=== PATIENT | male | born 1955 | race Caucasian/White ===

== ENCOUNTER 2021-03-23 07:44 | Day surgery (SDC) | payer BC ==
[2021-03-20 15:51] LABS: MICROSCOPIC NOT IND
[2021-03-20 15:57] LABS: ALANINE AMINOTRANSFERASE 27 U/L (12-78); ALBUMIN 3.6 g/dL (3.4-5.0); ANION GAP 6 mmol/L (5-15); CALCIUM 8.6 mg/dL (8.5-10.1); CHLORIDE 109 mmol/L (98-107); CREATININE 1.24 mg/dL (0.7-1.3)
[2021-03-20 15:59] LABS: ALKALINE PHOSPHATASE 82 U/L (45-117); BILIRUBIN,TOTAL 0.4 mg/dL (0.2-1.0); TOTAL PROTEIN 7.2 g/dL (6.4-8.2)
[~2021-03-23] VITALS: Ht 177.8 cm; Wt 111.7 kg
[~2021-03-23 07:44] MED LIST: CITA10TA8 PO; LISI-170 PO; STEROID EYE RIGHTEYE; [UNRECOGNIZED DRUG - OTHER] RIGHTEYE
[2021-03-23] MEDS ORDERED: LIDOCAINE-MPF 1%, 2ML ONE (08:12)
[2021-03-23] MEDS ORDERED: CHLORHEXIDINE 15 ML UDC ONE (08:12)
[2021-03-23] MEDS ORDERED: LIDOCAINE-MPF 1%, 2ML INFIL ONE (08:30)
[2021-03-23] MEDS ORDERED: CHLORHEXIDINE 15 ML UDC PO ONE (08:30)
[2021-03-23] MEDS ORDERED: LACTATED RINGERS 1,000 ML IV SCH (08:30)
[2021-03-23] MEDS ORDERED: MIDAZOLAM 1 MG/ML, 2ML ONE (09:34)
[2021-03-23] MEDS ORDERED: PROPOFOL 10 MG/ML, 20ML ONE (09:35)
[2021-03-23] MEDS ORDERED: FENTANYL PF 250 MCG/5ML ONE (09:35)
[2021-03-23] MEDS ORDERED: ONDANSETRON 2MG/ML, 2ML ONE (09:36)
[2021-03-23] MEDS ORDERED: LIDOCAINE-MPF 2% ,5ML ONE (09:36)
[2021-03-23] MEDS ORDERED: DEXAMETHASONE 4 MG/ML, 1ML ONE (09:36)
[2021-03-23] MEDS ORDERED: LABETALOL 5MG/ML, 20ML IV PRN (10:00)
[2021-03-23] MEDS ORDERED: ACETAMINOPHEN 325 MG TABLET PO PRN (10:00)
[2021-03-23] MEDS ORDERED: PROMETHAZINE 25 MG/ML, 1ML IVPush PRN (10:00)
[2021-03-23] MEDS ORDERED: hydrALAzine 20 MG/ML, 1ML IV PRN (10:00)
[2021-03-23] MEDS ORDERED: DIAZEPAM 5 MG/ML, 2ML IVPush PRN (10:00)
[2021-03-23] MEDS ORDERED: ONDANSETRON 2MG/ML, 2ML IVPush PRN (10:00)
[2021-03-23] MEDS ORDERED: DIPHENHYDRAMINE 50 MG/ML, 1ML IVPush PRN (10:00)
[2021-03-23] MEDS ORDERED: MEPERIDINE/PF 25MG/0.5ML IVPush PRN (10:00)
[2021-03-23] MEDS ORDERED: FENTANYL PF 100 MCG/2ML IV PRN (10:00)
[2021-03-23] MEDS ORDERED: OXYcodone 5 MG/5 ML ORAL.SOL UDC PO PRN (10:00)
[2021-03-23] MEDS ORDERED: HYDROmorphone 1 MG/ML, 1ML INJ IVPush PRN (10:00)
[2021-03-23] MEDS ORDERED: KETOROLAC 30 MG/1 ML ONE ×2 (10:11)
[2021-03-23] MEDS ORDERED: OMNIPAQUE 350 MG/ML, 50 ML BOTTLE ONE (10:17)
[2021-03-23] MEDS ORDERED: ONDANSETRON 2MG/ML, 2ML IV PRN (11:00)
[2021-03-23] MEDS ORDERED: KETOROLAC 30 MG/1 ML IV PRN (11:00)
[2021-03-23] MEDS ORDERED: HYDROcodone/APAP 5/325 TABLET PO PRN (11:00)
[2021-03-23] MEDS ORDERED: OPIUM/BELLADONNA SUPP.RECT 16.2-60 MG PR PRN (11:00)
[2021-03-23] MEDS ORDERED: LIDOCAINE 1%, 20ML ONE (13:19)
[2021-03-23] MEDS ORDERED: FLUMAZENIL 0.1 MG/1 ML, 5ML ONE (13:35)
[2021-03-23] MEDS ORDERED: MIDAZOLAM 1 MG/ML, 5ML ONE (13:35)
[2021-03-23] MEDS ORDERED: FENTANYL PF 100 MCG/2ML ONE ×2 (13:35)
[2021-03-23] MEDS ORDERED: NALOXONE 1 MG/ML, 2ML ONE (13:36)
== END 2021-03-23 17:25 | disposition home or self-care (01) ==
LOC: OUT 07:44
PROVIDERS: ATTEND Urology
DX: N13.2 Hydronephrosis with renal and ureteral calculous obstruction (principal); N35.912 Unspecified bulbous urethral stricture, male; I10 Essential (primary) hypertension; Z20.822 Contact with and (suspected) exposure to COVID-19; Z79.899 Other long term (current) drug therapy; Z87.891 Personal history of nicotine dependence; Z88.5 Allergy status to narcotic agent
CPT/HCPCS: 36415; 50432; 52276; 52353; 74018; 74420; 80053; 81003; 87086; 93005; 99156; 99157; C1729; C1769; C1894; J1100; J1885; J2250; J2405; J2704; J3010; J7120; Q9967; U0003; 76000; J2310

== ENCOUNTER 2021-04-29 19:04 | Emergency (ER) | payer BC ==
[~2021-04-29] VITALS: Ht 177.8 cm; Wt 115.8 kg
[2021-04-29 19:36] LABS: BASOPHILS % (AUTO) 1 % (0-1); EOSINOPHILS % (AUTO) 3 % (1-7); LYMPHOCYTES % (AUTO) 30 % (22-44); MEAN CORPUSCULAR HEMOGLOBIN 27.1 pg (27.5-34.5); MEAN PLATELET VOLUME 7.5 fL (7.4-10.4); MONOCYTES % (AUTO) 10 % (2-9); NEUTROPHILS % (AUTO) 56 % (42-75); PLATELET COUNT 280 x10^3/uL (130-400); RED BLOOD COUNT 5.44 x10^6/uL (4.38-5.82); RED CELL DISTRIBUTION WIDTH 14.2 % (9.4-14.8)
[2021-04-29 19:47] LABS: ALANINE AMINOTRANSFERASE 28 U/L (12-78); ALBUMIN 3.5 g/dL (3.4-5.0); ANION GAP 7 mmol/L (5-15); CALCIUM 8.5 mg/dL (8.5-10.1); CHLORIDE 105 mmol/L (98-107); CREATININE 1.01 mg/dL (0.7-1.3)
[2021-04-29 19:50] LABS: ALKALINE PHOSPHATASE 102 U/L (45-117); BILIRUBIN,TOTAL 0.4 mg/dL (0.2-1.0); TOTAL PROTEIN 7.9 g/dL (6.4-8.2)
--- NOTE | 2021-04-29 20:53 | NUR ---
PT AMBULATORY WITH STEADY GAIT FROM LOBBY TO ED ROOM 17
--- NOTE | 2021-04-29 20:58 | NUR ---
PRECEPTOR RN: INITIAL PT CONTACT. PT PRESENTS TO ED C/O DECREASED URINE OUTPUT FROM NEPHROSTOMY TUBE. "2 DAYS AGO I NOTICED THE TUBE WAS ABOUT AN INCH FURTHER OUT THAN NORMAL AND NOW I HAVE LESS OUTPUT IN MY BAG. I DONT HAVE ANY LEAKING AROUND THE TUBE SITE BUT IT DOES ITCH A LOT." PT DENIES FEVERS, BUT DOES C/O PAIN. HX OF MULTIPLE KIDNEY STONES. PT SITTING UPRIGHT ON GURNEY, NADN, VSS. PT DENIES ANY NEEDS AT THIS TIME. CALL LIGHT AND PERSONAL BELONGINGS WITHIN REACH. ERP AT BEDSIDE.
[2021-04-29 21:33] LABS: MICROSCOPIC INDICATED
--- NOTE | 2021-04-29 21:43 | NUR ---
REPORT GIVEN TO PRANAV FERGUSON
--- NOTE | 2021-04-29 22:12 | NUR ---
PT RESTING ON GURNEY, DENIES NEEDS AT THIS TIME.
--- NOTE | 2021-04-29 22:12 | NUR ---
US AT BEDSIDE
[2021-04-29] MEDS ORDERED: CEFDINIR 300 MG CAPSULE ONE (23:10)
[2021-04-29 23:23] VITALS: BP 128/70
--- NOTE | 2021-04-29 23:24 | NUR ---
Patient given discharge instructions and they have confirmed that they understand the instructions. Patient ambulatory with steady gait.
[2021-04-29] MEDS ORDERED: CEFDINIR 300 MG CAPSULE PO ONE (23:30)
== END 2021-04-29 23:26 | disposition home or self-care (01) ==
LOC: ED 21:45
DX: N39.0 Urinary tract infection, site not specified (principal); R31.9 Hematuria, unspecified; N99.522 Malfunction of incontinent external stoma of urinary tract; I10 Essential (primary) hypertension; Z87.891 Personal history of nicotine dependence
CPT/HCPCS: 36415; 76770; 80053; 81001; 83605; 84145; 85025; 87086; 99284

== ENCOUNTER 2021-04-30 11:14 | Outpatient (CLI) | payer BC | END 2021-04-30 23:59 | disposition home or self-care (01) | LOC: RAD 11:14 | PROVIDERS: ATTEND Student in an Organized Health Care Education/Training Program | DX: N13.5 Crossing vessel and stricture of ureter without hydronephrosis (principal) | CPT/HCPCS: 50435; C1729; 50431 ==

== ENCOUNTER → 2021-05-11 | Outpatient (CLI) | payer BC ==
[~2021-05-11] MED LIST changes: +OMNIPAQUE 350 MG/ML, 100ML BOTTLE ONE
== END | disposition home or self-care (01) ==
LOC: CFH 14:42
PROVIDERS: ATTEND Urology
DX: N13.5 Crossing vessel and stricture of ureter without hydronephrosis (principal); N26.1 Atrophy of kidney (terminal); N20.1 Calculus of ureter; N20.0 Calculus of kidney; N32.89 Other specified disorders of bladder
CPT/HCPCS: 74177; Q9967

== ENCOUNTER 2021-07-16 10:48 | Outpatient (CLI) | payer BC ==
[~2021-07-16 10:48] MED LIST changes: -OMNIPAQUE 350 MG/ML, 100ML BOTTLE ONE
== END 2021-07-16 23:59 | disposition home or self-care (01) ==
LOC: RAD 10:48
PROVIDERS: ATTEND Urology
DX: N13.5 Crossing vessel and stricture of ureter without hydronephrosis (principal)
CPT/HCPCS: 78707; A9562

== ENCOUNTER 2021-08-17 08:36 | Day surgery (SDC) | payer BC | END 2021-08-17 10:00 | disposition home or self-care (01) | LOC: RAD 08:36 | PROVIDERS: ATTEND Physician Assistant | DX: N26.1 Atrophy of kidney (terminal) (principal); Z79.899 Other long term (current) drug therapy; Z87.891 Personal history of nicotine dependence | CPT/HCPCS: 50435; C1729; C1769; Q9967 ==